=== PATIENT | male | born 1960 | race Caucasian/White ===

== ENCOUNTER → 2018-05-14 | Outpatient (CLI) | payer BC ==
--- NOTE | 2018-05-17 09:20 | RAD ---
EXAM DESCRIPTION: Hip,Left 2 Views CLINICAL HISTORY: 57 years Male, pain COMPARISON: None available. FINDINGS: The visualized bones are well-mineralized.No acute fracture or dislocation. The soft tissues appear grossly unremarkable. IMPRESSION: Grossly normal radiographs of the left hip. Electronically signed by: Aleta Giang MD 05/17/2018 9:19 AM CDT
== END ==
LOC: RAD 16:22
PROVIDERS: ATTEND Nurse Practitioner Family
DX: M25.559 Pain in unspecified hip (principal)

== ENCOUNTER → 2018-05-28 | Outpatient (CLI) | payer BC ==
--- NOTE | 2018-05-30 13:26 | RAD ---
EXAM DESCRIPTION: Lumbar Spine 5 Views (accession [id number]), Lumbar Spine,Flex/Ext (accession [id number]) CLINICAL HISTORY: RADICULOPATHY, LUMBAR REGION COMPARISON: Left hip radiographs 05/14/2018. TECHNIQUE: AP Lateral images lumbar spine.Lateral Oblique images Flexion-extension images. Spot-lateral radiograph of the lumbar sacral junction. FINDINGS: Lumbar type vertebra: 5. Transitional vertebrae: None. Disc spaces: Maintained. Anterior endplate ridging at some levels. Compression deformities: None. Bone Density: Normal. Alignment: Extension limited below L3 level. Flexion is limited below the L3-4 disc level. Grade 1 anterolisthesis at L5-S1 does not reduce with flexion or extension. Trace retrolisthesis T12-L1 down to L3-4 decreases with flexion stable with extension. Oblique: Bilateral L5 pars interarticulares spondylolysis, which can also be seen on the spot lateral lumbosacral image. Facet joints: Narrowing of the right L5-S1 facet, which may be associated with the L5 spondylolysis ipsilateral. Abdomen: Bowel gas pattern nonspecific. Atherosclerotic calcifications anterior to the L4 vertebral body. IMPRESSION: 1. Bilateral L5 pars interarticulares spondylolysis is probable cause for grade 1 L5-S1 anterolisthesis, and narrowing of the right L5-S1 facet joint space. This anterolisthesis does not change with flexion or extension. Trace retrolisthesis T12-L1 down to L3-4 decreases with flexion and is stable with extension. 2. No compression type vertebral body fractures at any level. Electronically signed by: Ho Blanca MD 05/30/2018 1:25 PM CDT
--- NOTE | 2018-05-30 13:26 | RAD ---
EXAM DESCRIPTION: Lumbar Spine 5 Views (accession [id number]), Lumbar Spine,Flex/Ext (accession [id number]) CLINICAL HISTORY: RADICULOPATHY, LUMBAR REGION COMPARISON: Left hip radiographs 05/14/2018. TECHNIQUE: AP Lateral images lumbar spine.Lateral Oblique images Flexion-extension images. Spot-lateral radiograph of the lumbar sacral junction. FINDINGS: Lumbar type vertebra: 5. Transitional vertebrae: None. Disc spaces: Maintained. Anterior endplate ridging at some levels. Compression deformities: None. Bone Density: Normal. Alignment: Extension limited below L3 level. Flexion is limited below the L3-4 disc level. Grade 1 anterolisthesis at L5-S1 does not reduce with flexion or extension. Trace retrolisthesis T12-L1 down to L3-4 decreases with flexion stable with extension. Oblique: Bilateral L5 pars interarticulares spondylolysis, which can also be seen on the spot lateral lumbosacral image. Facet joints: Narrowing of the right L5-S1 facet, which may be associated with the L5 spondylolysis ipsilateral. Abdomen: Bowel gas pattern nonspecific. Atherosclerotic calcifications anterior to the L4 vertebral body. IMPRESSION: 1. Bilateral L5 pars interarticulares spondylolysis is probable cause for grade 1 L5-S1 anterolisthesis, and narrowing of the right L5-S1 facet joint space. This anterolisthesis does not change with flexion or extension. Trace retrolisthesis T12-L1 down to L3-4 decreases with flexion and is stable with extension. 2. No compression type vertebral body fractures at any level. Electronically signed by: Ho Blanca MD 05/30/2018 1:25 PM CDT
== END ==
LOC: RAD 15:26
PROVIDERS: ATTEND Nurse Practitioner Family
DX: M47.26 Other spondylosis with radiculopathy, lumbar region (principal)